=== PATIENT | male | born 1990 | race Caucasian/White ===

== ENCOUNTER 2016-11-24 18:01 | Emergency (ER) | payer SELFPAY ==
[~2016-11-24] VITALS: Ht 182.9 cm; Wt 63.6 kg
[2016-11-24 18:03] VITALS: BP 126/86; PULSE 65; RESP 20; TEMP 98.1; O2SAT 94
== END 2016-11-24 18:52 | disposition left against medical advice (07) ==
LOC: NED 18:52
DX: R11.2 Nausea with vomiting, unspecified (principal); R21 Rash and other nonspecific skin eruption; Z53.21 Procedure and treatment not carried out due to patient leaving prior to being seen by health care provider
CPT/HCPCS: 99281